=== PATIENT | female | born 1995 | race Caucasian/White ===

== ENCOUNTER 2018-04-04 09:35 | Emergency (ER) | payer OTHER | END 2018-04-04 11:04 | disposition home or self-care (01) | LOC: FTE 09:35 | DX: Z32.01 Encounter for pregnancy test, result positive (principal) | CPT/HCPCS: 81025; 99282 ==

== ENCOUNTER 2018-06-10 20:50 | Outpatient (CLI) | payer OTHER | END 2018-06-10 22:18 | disposition home or self-care (01) | LOC: OBT 20:50 → L-D 20:52 → OBT 22:18 | DX: O26.892 Other specified pregnancy related conditions, second trimester (principal); H91.91 Unspecified hearing loss, right ear; Z3A.26 26 weeks gestation of pregnancy | CPT/HCPCS: Z7500 ==

== ENCOUNTER 2018-06-10 22:24 | Emergency (ER) | payer OTHER ==
[2018-06-11] MEDS ORDERED: ALBUTEROL 0.083% (NEB) 2.5 MG/3 ML AMP (01:59)
== END 2018-06-11 01:20 | disposition home or self-care (01) ==
LOC: FTE 22:24
DX: H61.21 Impacted cerumen, right ear (principal)
CPT/HCPCS: 99283; Z7502

== ENCOUNTER 2018-09-01 20:59 | Inpatient (IN) | payer OTHER ==
[2018-09-01] MEDS ORDERED: CARBOPROST 250 MCG INJ IM (22:00)
[2018-09-01] MEDS ORDERED: METHYLERGONOVINE 0.2 MG INJ IM (22:00)
[2018-09-01] MEDS ORDERED: LIDOCAINE 1% (MPF) 30 ML INJ INJ (22:00)
[2018-09-01] MEDS ORDERED: OXYTOCIN 30 UNITS/LR 500 ML IV ×2 (22:00)
[2018-09-01] MEDS ORDERED: IBUPROFEN 600 MG TAB PO (22:00)
[2018-09-01] MEDS ORDERED: BUTORPHANOL 2 MG INJ IV (22:00)
[2018-09-01] MEDS ORDERED: MISOPROSTOL 200 MCG TAB PR (22:00)
[2018-09-01] MEDS: LACTATED RINGER'S 1,000 ML IV (22:41)
[2018-09-01 22:49] LABS: ADD MAN DIFF? NO
[2018-09-01 22:54] LABS: WHITE BLOOD COUNT 10.7 10^3/ul (4.8-10.8)
[2018-09-01 22:54] LABS: BASOPHIL # 0.1 10^3/ul (0.0-0.1); BASOPHILS % 0.8 % (0.0-2.0); EOSINOPHILS # 0.1 10^3/ul (0.0-0.5); HEMATOCRIT 37.6 % (37.0-47.0); HEMOGLOBIN 12.3 g/dl (12.0-16.0); LYMPHOCYTES # 1.6 10^3/ul (0.8-2.9); LYMPHOCYTES % 14.9 % (15.0-51.0); MEAN CORPUSCULAR HEMOGLOBIN 30.1 pg (29.0-33.0); MEAN CORPUSCULAR HGB CONC 32.7 g/dl (32.0-37.0); MEAN CORPUSCULAR VOLUME 92.2 fl (82.0-101.0); MEAN PLATELET VOLUME 9.8 fl (7.4-10.4); MONOCYTE # 0.7 10^3/ul (0.3-0.9); MONOCYTES % 6.3 % (0.0-11.0); NEUTROPHIL # 7.8 10^3/ul (1.6-7.5); NEUTROPHILS % 72.5 % (39.0-77.0); PLATELET COUNT 241 10^3/UL (140-415); RED BLOOD COUNT 4.08 10^6/ul (4.20-5.40); RED CELL DISTRIBUTION WIDTH 13.3 % (11.5-14.5)
[2018-09-01] MEDS: AMPICILLIN 2 GM/NS (PMX) 100 ML IV (22:57)
[2018-09-01 23:10] LABS: INR 0.89; PROTIME 12.2 Sec (11.9-14.9)
[2018-09-01 23:11] LABS: PARTIAL THROMBOPLASTIN TIME 29.2 Sec (23.0-35.0)
[2018-09-01] MEDS: OXYTOCIN 30 UNITS/LR 500 ML IV (23:17)
[2018-09-02] MEDS: OXYTOCIN 30 UNITS/LR 500 ML IV ×2 (00:10→20:34)
[2018-09-02] MEDS: AMPICILLIN 1 GM/NS (PMX) 50 ML IV ×5 (03:06→18:17)
[2018-09-02] MEDS: LACTATED RINGER'S 1,000 ML IV ×5 (03:51→17:48)
[2018-09-02] MEDS ORDERED: FENTAnyl 2MCG/ML-ROPIV 0.2% 100 ML (07:56)
[2018-09-02] MEDS ORDERED: NALOXONE (0.4 MG/ML) INJ IV (13:30)
[2018-09-02 15:22] LABS: RAPID PLASMA REAGIN NONREACTIVE (NR)
[2018-09-02] MEDS: FENTAnyl 2MCG/ML-ROPIV 0.2% 100 ML BAG EPI (20:25)
[2018-09-02] MEDS ORDERED: CEFAZOLIN 2 GM/50 ML (PMX) 50 ML IVPB (20:36)
[2018-09-02] MEDS: CEFAZOLIN 2 GM/50 ML (PMX) 50 ML IVPB (20:45)
[2018-09-02] MEDS ORDERED: DIBUCAINE 1% 30 GM OINT TOP (21:30)
[2018-09-02] MEDS ORDERED: ONDANSETRON 4 MG INJ IV (21:30)
[2018-09-02] MEDS ORDERED: MAGNESIUM HYDROXIDE 30ML CUP PO (21:30)
[2018-09-02] MEDS ORDERED: ACETAMINOPHEN 325 MG TAB PO ×2 (21:30)
[2018-09-02] MEDS ORDERED: MISOPROSTOL 200 MCG TAB PR (21:30)
[2018-09-02] MEDS ORDERED: SENNA/DOCUSATE NA (8.6MG/50MG) TAB PO (21:30)
[2018-09-02] MEDS ORDERED: CARBOPROST 250 MCG INJ IM (21:30)
[2018-09-02] MEDS ORDERED: OXYTOCIN 30 UNITS/LR 500 ML IV (21:30)
[2018-09-02] MEDS ORDERED: METHYLERGONOVINE 0.2 MG INJ IM (21:30)
[2018-09-02] MEDS: LANOLIN HPA 1 PKT TOP (22:37)
[2018-09-02] MEDS: WITCH HAZEL/GLYCERIN PAD PR (22:37)
[2018-09-02] MEDS: BENZOCAINE 20% 56 ML SPRAY TOP (22:37)
[2018-09-03] MEDS: IBUPROFEN 600 MG TAB PO ×2 (00:28→13:06)
[2018-09-03] MEDS: OXYTOCIN 30 UNITS/LR 500 ML IV (00:29)
[2018-09-03] MEDS: LACTATED RINGER'S 1,000 ML IV* ×4 (00:39→21:22)
[2018-09-03] MEDS: CEFAZOLIN 1 GM/50 ML (PMX) 50 ML IVPB ×3 (05:13→21:59)
[2018-09-03 08:09] LABS: ADD MAN DIFF? NO
[2018-09-03 08:19] LABS: BASOPHIL # 0.1 10^3/ul (0.0-0.1); BASOPHILS % 0.3 % (0.0-2.0); EOSINOPHILS # 0.1 10^3/ul (0.0-0.5); EOSINOPHILS % 0.3 % (0.0-7.0); HEMATOCRIT 38.8 % (37.0-47.0); HEMOGLOBIN 12.9 g/dl (12.0-16.0); LYMPHOCYTES # 1.9 10^3/ul (0.8-2.9); LYMPHOCYTES % 9.1 % (15.0-51.0); MEAN CORPUSCULAR HEMOGLOBIN 30.3 pg (29.0-33.0); MEAN CORPUSCULAR HGB CONC 33.2 g/dl (32.0-37.0); MEAN CORPUSCULAR VOLUME 91.1 fl (82.0-101.0); MEAN PLATELET VOLUME 10.2 fl (7.4-10.4); MONOCYTE # 1.3 10^3/ul (0.3-0.9); MONOCYTES % 6.1 % (0.0-11.0); NEUTROPHIL # 17.5 10^3/ul (1.6-7.5); NEUTROPHILS % 82.8 % (39.0-77.0); PLATELET COUNT 230 10^3/UL (140-415); RED BLOOD COUNT 4.26 10^6/ul (4.20-5.40); RED CELL DISTRIBUTION WIDTH 13.5 % (11.5-14.5)
[2018-09-03 08:19] LABS: WHITE BLOOD COUNT 21.2 10^3/ul (4.8-10.8)
[2018-09-03] MEDS ORDERED: BISACODYL (EC) 5 MG TAB PO (18:00)
[2018-09-03] MEDS ORDERED: MAGNESIUM HYDROXIDE 30ML CUP PO (20:00)
[2018-09-03] MEDS: MAGNESIUM HYDROXIDE 30ML CUP PO (21:41)
[2018-09-03] MEDS: BISACODYL 10 MG SUPP PR (21:42)
[2018-09-03] MEDS: BISACODYL (EC) 5 MG TAB PO (22:00)
[2018-09-04] MEDS: LACTATED RINGER'S 1,000 ML IV* (05:14)
[2018-09-04 08:36] LABS: ADD MAN DIFF? NO
[2018-09-04 08:44] LABS: BASOPHIL # 0.1 10^3/ul (0.0-0.1); EOSINOPHILS # 0.2 10^3/ul (0.0-0.5); EOSINOPHILS % 1.9 % (0.0-7.0); HEMATOCRIT 35.9 % (37.0-47.0); HEMOGLOBIN 11.5 g/dl (12.0-16.0); LYMPHOCYTES # 1.8 10^3/ul (0.8-2.9); LYMPHOCYTES % 14.5 % (15.0-51.0); MEAN CORPUSCULAR HEMOGLOBIN 30.3 pg (29.0-33.0); MEAN CORPUSCULAR VOLUME 94.7 fl (82.0-101.0); MEAN PLATELET VOLUME 10.2 fl (7.4-10.4); MONOCYTES % 8.1 % (0.0-11.0); NEUTROPHIL # 8.8 10^3/ul (1.6-7.5); NEUTROPHILS % 71.2 % (39.0-77.0); PLATELET COUNT 202 10^3/UL (140-415); RED BLOOD COUNT 3.79 10^6/ul (4.20-5.40); RED CELL DISTRIBUTION WIDTH 13.5 % (11.5-14.5)
[2018-09-04 08:44] LABS: WHITE BLOOD COUNT 12.4 10^3/ul (4.8-10.8)
== END 2018-09-04 15:23 | disposition home or self-care (01) | DRG 807 ==
LOC: OBT 20:59 → PP1 09-02 22:21 → L-D 20:59 → OBT 21:30 → L-D 21:40
PROVIDERS: Obstetrics & Gynecology
PROC: 10E0XZZ Delivery of Products of Conception, External Approach (ICD-10-PCS; principal; 2018-09-02)
PROC: 0KQM0ZZ Repair Perineum Muscle, Open Approach (ICD-10-PCS; 2018-09-02)
DX: O42.02 Full-term premature rupture of membranes, onset of labor within 24 hours of rupture (principal); Z37.0 Single live birth; O70.1 Second degree perineal laceration during delivery; Z3A.38 38 weeks gestation of pregnancy
CPT/HCPCS: 62322; 76815; 85025; 85610; 85730; 86592; 86850; 86900; 86901; 88307